=== PATIENT | male | born 1985 | race Hispanic/Latino ===

== ENCOUNTER 2017-05-27 04:09 | Emergency (ER) | payer SELFPAY ==
[2017-05-27] MEDS ORDERED: Ibuprofen 800 MG TAB ONE (04:14)
--- NOTE | 2017-05-27 07:51 | RAD ---
RIGHT WRIST 3 VIEWS: Date: 05/27/17 HISTORY: Right wrist pain. FINDINGS/IMPRESSION: There is a comminuted fracture involving the distal radius with extension into the articular surface and mild posterior displacement. POS: ESSENCE
== END 2017-05-27 06:54 | disposition home or self-care (01) ==
LOC: ERS 04:09
DX: S52.501A Unspecified fracture of the lower end of right radius, initial encounter for closed fracture (principal); F10.129 Alcohol abuse with intoxication, unspecified; W18.30XA Fall on same level, unspecified, initial encounter
CPT/HCPCS: 29125

== ENCOUNTER 2017-06-03 06:09 | Day surgery (SDC) | payer OTHER, SELFPAY ==
[2017-05-30 15:27] VITALS: BMI 29.4
[2017-06-03] MEDS ORDERED: Midazolam HCl 2 mg/2 ml Vial ONE ×2 (06:39→06:56)
[2017-06-03] MEDS ORDERED: Fentanyl 100 MCG/2 ML VIAL ONE ×5 (06:39→07:23)
[2017-06-03] MEDS ORDERED: CEFAZOLIN/Water 2 GM/20 ML SYRINGE ONE (07:04)
[2017-06-03] MEDS ORDERED: HYDROmorphone 0.5 MG/0.5 ML SYRINGE ONE (07:23)
--- NOTE | 2017-06-03 10:34 | OP ---
DATE OF PROCEDURE: 06/03/2017 PREOPERATIVE DIAGNOSIS: Right intra-articular comminuted (greater than 3 fragments) distal radius fr acture. POSTOPERATIVE DIAGNOSIS: Right intra-articular comminuted (greater than 3 fragments) distal radius f racture. SURGICAL PROCEDURE: Open reduction internal fixation of right distal radius. ANESTHESIA: General. SURGEON: Linwood Chavez M.D. COIL INSPECTOR: Dillon Molina PA-C. TOURNIQUET TIME: 49 minutes at 250 mmHg. IMPLANTS: Synthes 2.4 mm variable angle LCP 2 column volar distal radius plate with combination of 2 .7 mm cortical screws and 2.4 mm variable angle locking screws. COMPLICATIONS: None. DRAINS: None. SPECIMEN: None. OUTCOME: Satisfactory. INDICATIONS: The patient is a 31-year-old gentleman status post fall on outstretched right arm susta ining an intra-articular comminuted distal radius fracture. With displacement and intra-articular ex tension of the fracture, I have recommended we proceed with open reduction internal fixation. Inform ed consent has been obtained. I believe all questions answered. DESCRIPTION OF PROCEDURE: The patient was brought to the operating room and a timeout performed foll owed by induction of general anesthesia. Next, an Esmarch bandage was used to exsanguinate the limb and then tourniquet inflated to 250 mmHg. Next, a volar distal forearm incision was made. The inter marcela between the flexor carpi radialis and brachioradialis was exploited and the neurovascular bundle retracted radially. Next, the dissection was carried down to the underlying pronator quadratus. Thi s was released off the radial border of the distal radius and reflected to the midline revealing the underlying fracture. Next, an open reduction was performed and held in place with a spike tenaculum. Once felt to be acceptably reduced, a volar plate was applied and a 2.7 mm cortical screw was used to hold the plate against the shaft. The plate was then adjusted under C-arm guidance and then a tot al of four 2.4 mm variable angle locking screws were placed in the distal limb of the plate. Two add itional 2.7 mm cortical screws were placed along the proximal limb of the plate. This resulted in re storation of radial inclination and approximately neutral volar tilt and druze of radial length . The wound was then irrigated with normal saline and closed in layers with 2-0 Vicryl deep, followe d by nylon for the skin. Xeroform gauze and fiberglass splint was applied to the forearm and then th e tourniquet was let down, and the patient transferred to the recovery room in stable condition. The re were no complications. He tolerated the procedure well.
--- NOTE | 2017-06-03 18:24 | RAD ---
RIGHT FOREARM: 06/03/17 Two fluoroscopic images of distal right forearm obtained with images primarily at the wrist. INDICATION: Intraoperative imaging with fluoroscopy during internal fixation procedure. FINDINGS/IMPRESSION: Ventral plate and screws transfix the distal radius fracture. POS: ESSENCE
== END 2017-06-03 11:35 | disposition home or self-care (01) ==
LOC: SDC 06:09
PROVIDERS: ATTEND Orthopaedic Surgery
PROC: 0PSH04Z Reposition Right Radius with Internal Fixation Device, Open Approach (ICD-10-PCS; principal; 2017-06-03)
DX: S52.571A Other intraarticular fracture of lower end of right radius, initial encounter for closed fracture (principal)
CPT/HCPCS: 76001; C1713; J0131; J1170; J2250; J3010